=== PATIENT | male | born 1985 | race Caucasian/White ===

== ENCOUNTER 2020-12-27 14:36 | Emergency (ER) | payer OTHER ==
[~2020-12-27 14:36] MED LIST: BENTYL 20MG TAB20 MG PO; ZOFRAN4 MG PO
[2020-12-27] MEDS ORDERED: BACTRIM 400-801 EACH PO (15:45)
== END 2020-12-27 16:24 | disposition home or self-care (01) ==
LOC: ER1 14:36
DX: L02.11 Cutaneous abscess of neck (principal); F17.210 Nicotine dependence, cigarettes, uncomplicated
CPT/HCPCS: 10060; 87070; 87077; 87186; 87205; 99283